=== PATIENT | female | born 1995 | race Caucasian/White ===

== ENCOUNTER 2016-11-29 12:47 | Emergency (ER) | payer OTHER ==
[2016-11-29 12:57] VITALS: RESP 16
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
[2016-11-29 14:50] VITALS: BP 123/75; PULSE 73; TEMP 97.6
== END 2016-11-29 14:51 | disposition home or self-care (01) ==
LOC: EC 12:47
DX: S09.90XA Unspecified injury of head, initial encounter (principal); J45.909 Unspecified asthma, uncomplicated; F17.200 Nicotine dependence, unspecified, uncomplicated; Z88.1 Allergy status to other antibiotic agents; Z91.040 Latex allergy status; Z88.0 Allergy status to penicillin; Z88.2 Allergy status to sulfonamides; Z91.018 Allergy to other foods; W22.8XXA Striking against or struck by other objects, initial encounter
CPT/HCPCS: 70450; 99283

== ENCOUNTER → 2016-12-02 | Outpatient (CLI) | payer OTHER ==
--- NOTE | 2016-12-02 23:12 | MR ---
EXAMINATION TYPE: MR knee LT wo con DATE OF EXAM: 12/02/2016 6:23 PM COMPARISON: 06/15/2016 HISTORY: 21-year-old female with left knee pain since 10/2016, slipped and fell on ice TECHNIQUE: Multiplanar, multisequence imaging of the left knee is performed without IV contrast. FINDINGS: ACL, PCL, MCL, and LCL complex appear intact. There is some degenerative signal in the posterior horn of the medial meniscus without clear signal e xtension to either articular surface. Overall medial compartment articular cartilage volume is mainta ined. Lateral meniscus is intact and overall lateral compartment articular cartilage volume is maintained. 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 The TT-T G distance is intermediate at 1.5 cm and there is no rudi patella kelvin. There is interval fixation at both attachment sites of the MPFL with a thick ligamentous band seen co nnecting between screws located at each attachment site. However, the hypointense band is slightly re dundant, axial image 18 and while the femoral attachment site, axial image 17 and visualized, the med ial patellar attachment site is not well delineated, axial image 16. Extensor mechanism appears intact. There is small amount of edema within Hoffa's fat located inferior and lateral to the patella, sagittal PD FS image 9 and axial image 11. Overall patellofemoral compartment articular cartilage is maintained. Extensor mechanism is intact. Small knee joint effusion without King's cyst. No suspicious bone marrow replacement. Normal popliteal artery anatomy with mild generalized muscular atrophy. IMPRESSION: 1. 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 Note that the reconstructed ligament appears wavy and the patellar attachment is not well delineated. Correlate to exclude failure of the reconstruction. 2. Some signal changes within Hoffa's fat inferior and lateral to the patella can be seen in the sett ing of fat pad impingement syndrome. Clinically correlate. 3. Overall tricompartmental cartilage is maintained. 4. Degenerative signal in the posterior horn of the medial meniscus without discrete meniscal tear.
== END | disposition home or self-care (01) ==
LOC: RADMRIMAIN 17:54
PROVIDERS: ATTEND Orthopaedic Surgery Sports Medicine
DX: M17.12 Unilateral primary osteoarthritis, left knee (principal); Q74.1 Congenital malformation of knee

== ENCOUNTER 2017-02-18 17:22 | Emergency (ER) | payer OTHER ==
[2017-02-18 17:39] VITALS: BP 142/81; PULSE 102; RESP 16; TEMP 98
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
--- NOTE | 2017-02-18 17:54 | XR ---
EXAMINATION TYPE: XR hand complete RT DATE OF EXAM: 02/18/2017 5:47 PM COMPARISON: NONE HISTORY: Fell on the hand. Pain. TECHNIQUE: 3 views FINDINGS: I see no fracture nor dislocation. Metacarpals appear intact. Joint spaces appear normal. IMPRESSION: Negative right hand exam.
== END 2017-02-18 18:11 | disposition home or self-care (01) ==
LOC: EC 17:22
DX: S60.221A Contusion of right hand, initial encounter (principal); J45.909 Unspecified asthma, uncomplicated; W17.89XA Other fall from one level to another, initial encounter; Y92.008 Other place in unspecified non-institutional (private) residence as the place of occurrence of the external cause; F17.200 Nicotine dependence, unspecified, uncomplicated; Z88.0 Allergy status to penicillin; Z91.040 Latex allergy status; Z91.018 Allergy to other foods; Z88.2 Allergy status to sulfonamides
CPT/HCPCS: 99283

== ENCOUNTER → 2017-08-31 | Outpatient (CLI) | payer OTHER ==
--- NOTE | 2017-08-31 13:03 | XR ---
EXAMINATION TYPE: XR abdomen 1V DATE OF EXAM: 08/31/2017 COMPARISON: NONE INDICATION: Abdomen pain right lower quadrant pain TECHNIQUE: Single view abdomen frontal projection FINDINGS: There is a normal bowel gas pattern. Psoas margins are normal. No organomegaly is present. IMPRESSION: 1. Unremarkable Abdomen
== END | disposition home or self-care (01) ==
LOC: RADXRYALE 11:59
PROVIDERS: ATTEND Physician Assistant
DX: R10.9 Unspecified abdominal pain (principal)
CPT/HCPCS: 74000

== ENCOUNTER 2017-09-01 19:35 | Emergency (ER) | payer OTHER ==
[2017-09-01] MEDS ORDERED: ONDANSETRON 4 MG/2 ML VIAL IVP STA (20:06)
[2017-09-01] MEDS ORDERED: RX INFO: IV CONTRAST WAS GIVEN 1 EACH MISC MISCELLANE PRN (20:06)
[2017-09-01] MEDS ORDERED: SODIUM CHLORIDE 0.9% 1,000 ML IV STA ×2 (20:06)
[2017-09-01] MEDS ORDERED: KETOROLAC 30 MG/ML 1 ML VIAL IVP STA (20:06)
--- NOTE | 2017-09-01 20:13 | ED ---
Abdominal Pain HPI - General Chief Complaint: Abdominal Pain Stated Complaint: Abd Pain Time Seen by Provider: 09/01/17 19:54 Source: patient, RN notes reviewed, old records reviewed Mode of arrival: ambulatory Limitations: no limitations - History of Present Illness Initial Comments: 22-year-old female presents emergency Department chief complaint of 2 days of right-sided flank, and upper quadrant pain. Patient reports a sharp primary care provider yesterday, and they told her if the pain starts to get lower that she needs to come to the emergency department. She reports that over the past day the pain has became progressively worse and is now radiating towards her right lower quadrant pelvic area. Patient states that she is currently on the dip a shot, she has no chance of . Denies any dysuria or hematuria. She denies any episodes of vomiting but she does feel very nauseated. Denies any changes in bowel movements. She reports that she feels very chilled, denies any specific fever. - Related Data Home Medications Medication Instructions Recorded Confirmed Citalopram Hydrobromide [CeleXA] 10 mg PO HS 09/01/17 09/01/17 Montelukast [Singulair] 10 mg PO HS 09/01/17 09/01/17 Nitrofurantoin Monohyd/M-Cryst 100 mg PO Q12HR 09/01/17 09/01/17 [Macrobid] Zolpidem [Ambien] 5 mg PO HS 09/01/17 09/01/17 Previous Rx's Medication Instructions Recorded Ciprofloxacin HCl [Cipro] 500 mg PO Q12HR #14 tablet 09/01/17 Allergies Allergy/AdvReac Type Severity Reaction Status Date / Time amoxicillin [Amoxicillin] Allergy Rash/Hives Verified 09/01/17 19:50 coconut Allergy Unknown Verified 09/01/17 19:50 latex Allergy Rash/Hives Verified 09/01/17 19:50 pineapple Allergy Unknown Verified 09/01/17 19:42 sulfamethoxazole Allergy Dyspnea Verified 09/01/17 19:50 [From Bactrim] trimethoprim [From Bactrim] Allergy Dyspnea Verified 09/01/17 19:50 tropical fruit Allergy Swelling Uncoded 09/01/17 19:42 Review of Systems ROS Statement: Those systems with pertinent positive or pertinent negative responses have been documented in the HPI. ROS Other: All systems not noted in ROS Statement are negative. Past Medical History Past Medical History: Asthma History of Any Multi-Drug Resistant Organisms: None Reported Past Surgical History: Orthopedic Surgery Additional Past Surgical History / Comment(s): left knee surgery, oral surgery Past Psychological History: Anxiety Smoking Status: Current every day smoker Past Alcohol Use History: Occasional Past Drug Use History: None Reported General Exam - General Exam Comments Initial Comments: 22-year-old female. No distress. Limitations: no limitations General appearance: alert, in no apparent distress Head exam: Present: atraumatic, normocephalic, normal inspection Eye exam: Present: normal appearance, PERRL, EOMI. Absent: scleral icterus, conjunctival injection, periorbital swelling ENT exam: Present: normal exam, mucous membranes moist Neck exam: Present: normal inspection. Absent: tenderness, meningismus, lymphadenopathy Respiratory exam: Present: normal lung sounds bilaterally. Absent: respiratory distress, wheezes, rales, rhonchi, stridor Cardiovascular Exam: Present: regular rate GI/Abdominal exam: Present: soft, tenderness (Right lower quadrant right upper quadrant tenderness.), normal bowel sounds. Absent: distended, guarding, rebound, rigid Extremities exam: Present: normal inspection, full ROM, normal capillary refill. Absent: tenderness, pedal edema, joint swelling, calf tenderness Back exam: Present: normal inspection, CVA tenderness (R) Neurological exam: Present: alert, oriented X3, CN II-XII intact Psychiatric exam: Present: normal affect, normal mood Skin exam: Present: warm, dry, intact, normal color. Absent: rash Course Vital Signs 09/01/17 19:38 Temperature 99.1 F Pulse Rate 99 Respiratory 16 Rate Blood Pressure 116/85 O2 Sat by Pulse 96 Oximetry Medical Decision Making - Medical Decision Making 22-year-old field sincedepartment with right upper quadrant pain that radiated towards her right lower quadrant, and some right flank pain for approximately 2 days. Patient was seen by her primary care provider and was told that she had a slight urinary tract infection. She reports the pain got progressively worse patient's blood work was reviewed, was within normal limits. Normal kidney function and liver function. Patient was significant only tender over the right lower quadrant, computed tomography scan abdomen and pelvis was completed , this time is negative for appendicitis, there are follicular changes in the ovaries. Patient's urine does show some signs of infection with white blood cells leukocyte esterase. Patient will be changed from Macrobid to Cipro. Patient will be given a first dose of Cipro in the emergency department. Discussed following up with her primary care provider. Discussed also that she needs to follow-up in regards to other gallbladder etiology is given a HIDA scan. Patient understood history plan will comply. Return parameters were discussed. - Lab Data Result diagrams: 09/01/17 20:15 09/01/17 20:15 Lab Results 09/01/17 09/01/17 09/01/17 Range/Units 20:15 20:15 20:15 WBC 9.2 (3.8-10.6) k/uL RBC 5.31 (3.80-5.40) m/uL Hgb 15.8 (11.4-16.0) gm/dL Hct 47.3 H (34.0-46.0) % MCV 89.1 (80.0-100.0) fL MCH 29.8 (25.0-35.0) pg MCHC 33.5 (31.0-37.0) g/dL RDW 14.0 (11.5-15.5) % Plt Count 334 (150-450) k/uL Neutrophils % 61 % Lymphocytes % 27 % Monocytes % 4 % Eosinophils % 6 % Basophils % 1 % Neutrophils # 5.7 (1.3-7.7) k/uL Lymphocytes # 2.5 (1.0-4.8) k/uL Monocytes # 0.4 (0-1.0) k/uL Eosinophils # 0.6 (0-0.7) k/uL Basophils # 0.1 (0-0.2) k/uL Sodium 141 (137-145) mmol/L Potassium 4.2 (3.5-5.1) mmol/L Chloride 107 (98-107) mmol/L Carbon Dioxide 20 L (22-30) mmol/L Anion Gap 14 mmol/L BUN 12 (7-17) mg/dL Creatinine 0.69 (0.52-1.04) mg/dL Est GFR (MDRD) Af Amer >60 (>60 ml/min/1.73 sqM) Est GFR (MDRD) Non-Af >60 (>60 ml/min/1.73 sqM) Glucose 78 (74-99) mg/dL Calcium 9.7 (8.4-10.2) mg/dL Total Bilirubin 0.5 (0.2-1.3) mg/dL AST 33 (14-36) U/L ALT 59 H (9-52) U/L Alkaline Phosphatase 95 (38-126) U/L Total Protein 7.5 (6.3-8.2) g/dL Albumin 4.5 (3.5-5.0) g/dL Amylase 31 (30-110) U/L Lipase 73 (23-300) U/L Urine Color Urine Appearance (Clear) Urine pH (5.0-8.0) Ur Specific [place] (1.001-1.035) Urine Protein (Negative) Urine Glucose (UA) (Negative) Urine Ketones (Negative) Urine Blood (Negative) Urine Nitrite (Negative) Urine Bilirubin (Negative) Urine Urobilinogen (<2.0) mg/dL Ur Leukocyte Esterase (Negative) Urine RBC (0-5) /hpf Urine WBC (0-5) /hpf Ur Squamous Epith Cells (0-4) /hpf Urine Bacteria (None) /hpf Urine Mucus (None) /hpf Urine HCG, Qual Not Detected (Not Detectd) 09/01/17 Range/Units 20:15 WBC (3.8-10.6) k/uL RBC (3.80-5.40) m/uL Hgb (11.4-16.0) gm/dL Hct (34.0-46.0) % MCV (80.0-100.0) fL MCH (25.0-35.0) pg MCHC (31.0-37.0) g/dL RDW (11.5-15.5) % Plt Count (150-450) k/uL Neutrophils % % Lymphocytes % % Monocytes % % Eosinophils % % Basophils % % Neutrophils # (1.3-7.7) k/uL Lymphocytes # (1.0-4.8) k/uL Monocytes # (0-1.0) k/uL Eosinophils # (0-0.7) k/uL Basophils # (0-0.2) k/uL Sodium (137-145) mmol/L Potassium (3.5-5.1) mmol/L Chloride (98-107) mmol/L Carbon Dioxide (22-30) mmol/L Anion Gap mmol/L BUN (7-17) mg/dL Creatinine (0.52-1.04) mg/dL Est GFR (MDRD) Af Amer (>60 ml/min/1.73 sqM) Est GFR (MDRD) Non-Af (>60 ml/min/1.73 sqM) Glucose (74-99) mg/dL Calcium (8.4-10.2) mg/dL Total Bilirubin (0.2-1.3) mg/dL AST (14-36) U/L ALT (9-52) U/L Alkaline Phosphatase (38-126) U/L Total Protein (6.3-8.2) g/dL Albumin (3.5-5.0) g/dL Amylase (30-110) U/L Lipase (23-300) U/L Urine Color Yellow Urine Appearance Cloudy H (Clear) Urine pH 5.5 (5.0-8.0) Ur Specific [place] 1.023 (1.001-1.035) Urine Protein Trace H (Negative) Urine Glucose (UA) Negative (Negative) Urine Ketones Negative (Negative) Urine Blood Negative (Negative) Urine Nitrite Negative (Negative) Urine Bilirubin Negative (Negative) Urine Urobilinogen 2.0 (<2.0) mg/dL Ur Leukocyte Esterase Large H (Negative) Urine RBC 8 H (0-5) /hpf Urine WBC 23 H (0-5) /hpf Ur Squamous Epith Cells 26 H (0-4) /hpf Urine Bacteria Rare H (None) /hpf Urine Mucus Occasional H (None) /hpf Urine HCG, Qual (Not Detectd) - Radiology Data Radiology results: report reviewed CT abdomen and pelvis is performed,status. Patient does have liquid changes and bilateral ovaries. Disposition Clinical Impression: UTI (urinary tract infection) Disposition: HOME SELF-CARE Condition: Good Instructions: Urinary Tract Infection in Women (ED) Additional Instructions: Patient denies to follow-up with her primary care provider. Rest, increase fluids. Take Motrin or Tylenol for pain. Return to emergency department if any alarming signs or symptoms occur. Prescriptions: Ciprofloxacin HCl [Cipro] 500 mg PO Q12HR #14 tablet Referrals: Benson Chen DO [Primary Care Provider] - 1-2 days Time of Disposition: 21:46
[2017-09-01 20:27] LABS: Basophils # (A) 0.1 k/uL (0-0.2); Basophils % (A) 1 %; CH 31.2; CHCM 35.2; Eosinophils # (A) 0.6 k/uL (0-0.7); Eosinophils % (A) 6 %; HCT 47.3 % (34.0-46.0); HDW 2.31; HGB 15.8 gm/dL (11.4-16.0); Luc # (Auto) 0.15; Luc % (Auto) 2; Lymphocytes # (A) 2.5 k/uL (1.0-4.8); Lymphocytes % (A) 27 %; MCH 29.8 pg (25.0-35.0); MCHC 33.5 g/dL (31.0-37.0); MCV 89.1 fL (80.0-100.0); Monocytes # (A) 0.4 k/uL (0-1.0); Monocytes % (A) 4 %; Neutrophils # (A) 5.7 k/uL (1.3-7.7); Neutrophils % (A) 61 %; RBC 5.31 m/uL (3.80-5.40); WBC 9.2 k/uL (3.8-10.6); WBC (Perox) 9.53
[2017-09-01 20:29] LABS: Appearance,Urine Cloudy (Clear); Bacteria,Urine Rare /hpf; Bilirubin,Urine Negative (Negative); Glucose,Urine (UA) Negative (Negative); Ketones,Urine Negative (Negative); Leukocyte Esterase,Urine Large (Negative); Mucus,Urine Occasional /hpf; Nitrite,Urine Negative (Negative); PH, Urine 5.5 (5.0-8.0); Particle Count 9861; Protein,Urine Trace (Negative); RBC,Urine 8 /hpf (0-5); Specific Gravity,Urine 1.023 (1.001-1.035); Squamous Epithelial Cell,Urine 26 /hpf (0-4); UA Billing (MACRO vs. MICRO) MICRO; WBC,Urine 23 /hpf (0-5)
[2017-09-01 20:36] LABS: ALT 59 U/L (9-52); AST 33 U/L (14-36); Alkaline Phosphatase 95 U/L (38-126); Amylase 31 U/L (30-110); Anion Gap 14 mmol/L; Blood Urea Nitrogen 12 mg/dL (7-17); Calcium 9.7 mg/dL (8.4-10.2); Carbon Dioxide 20 mmol/L (22-30); Chloride 107 mmol/L (98-107); Glucose 78 mg/dL (74-99); Non-African American GFR(MDRD) >60 (>60 ml/min/1.73 sqM); Potassium 4.2 mmol/L (3.5-5.1); Sodium 141 mmol/L (137-145); Total Bilirubin 0.5 mg/dL (0.2-1.3); Total Protein 7.5 g/dL (6.3-8.2)
--- NOTE | 2017-09-01 21:26 | CT ---
EXAMINATION TYPE: CT abdomen pelvis w con DATE OF EXAM: 09/01/2017 HISTORY: Right lower quadrant pain with nausea x [address] DLP: 632.10mGycm Automated Exposure Control for Dose Reduction was Utilized. CONTRAST: CT scan of the abdomen and pelvis is performed with IV Contrast, patient injected with 100 mL of Omni paque 300. COMPARISON: 11/16/2015 FINDINGS: LUNG BASES: Minimal subsegmental bibasilar dependent atelectasis is appreciated. LIVER/GB: Liver parenchyma enhances homogeneously. No intrahepatic biliary ductal dilatation. Gallbla dder is unremarkable with no radiopaque calculi.. PANCREAS: No significant abnormality is seen. No ductal dilatation. SPLEEN: No significant abnormality is seen. ADRENALS: No significant abnormality is seen. KIDNEYS: No significant abnormality is seen. BOWEL: Appendix is located within the low pelvis on axial images 60 through 64 and coronal images 44 through 67. Air is seen proximally. Appendix is within normal limits of size measuring 5.5 mm. No per iappendiceal fat stranding is seen. Appendix is located within the right low pelvis. UTERUS/ADNEXA: Follicular changes are seen of the ovaries. LYMPH NODES: No greater than 1cm abdominal or pelvic lymph nodes are appreciated. OSSEOUS STRUCTURES: No significant abnormality is seen. OTHER: No significant additional abnormality is seen. IMPRESSION: 1. Appendix is within normal limits of size without periappendiceal fat stranding. No current CT evid ence of appendicitis. 2. Follicular changes of the ovaries. 3. No CT finding to correspond to the patient's right lower quadrant pain.
[2017-09-01] MEDS ORDERED: CIPROFLOXACIN HCL 500 MG TAB PO STA (21:43)
[2017-09-01 21:57] VITALS: BP 119/63; PULSE 87; RESP 18; TEMP 98.2
== END 2017-09-01 21:56 | disposition home or self-care (01) ==
LOC: EC 19:35 → SUPCPDRO 19:35 → EC 21:56
DX: N39.0 Urinary tract infection, site not specified (principal); R10.11 Right upper quadrant pain; J45.909 Unspecified asthma, uncomplicated; F17.200 Nicotine dependence, unspecified, uncomplicated; Z79.899 Other long term (current) drug therapy; Z88.0 Allergy status to penicillin; Z88.1 Allergy status to other antibiotic agents; Z91.018 Allergy to other foods; Z91.040 Latex allergy status
CPT/HCPCS: 99285 ×2; 96374 ×2; 96375 ×2; 96361 ×2; 36415; 80053; 82150; 83690; 85025; 81001; 81025; 87086; 74177; J2405; J1885; Q9967

== ENCOUNTER → 2018-02-27 | Outpatient (CLI) | payer BC, OTHER ==
[2018-02-27 10:39] VITALS: BMI 31.4
== END | disposition home or self-care (01) ==
LOC: MNTWWP 09:21
PROVIDERS: ATTEND Family Medicine
DX: E66.09 Other obesity due to excess calories (principal); Z68.31 Body mass index [BMI] 31.0-31.9, adult
CPT/HCPCS: 97802

== ENCOUNTER 2018-05-14 18:20 | Emergency (ER) | payer BC ==
[2018-05-14 18:34] VITALS: BP 120/80; PULSE 80; RESP 18; TEMP 99.1
[2018-05-14] MEDS ORDERED: IBUPROFEN 600 MG TAB PO STA (18:52)
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
--- NOTE | 2018-05-14 19:23 | XR ---
EXAMINATION TYPE: XR tibia fibula LT DATE OF EXAM: 05/14/2018 CLINICAL HISTORY: TECHNIQUE: Two views of the left tib-fib are obtained. COMPARISON: None. FINDINGS: There is an acute undisplaced oblique fracture through the distal left fibula approximatel y 3.8 cm from the lateral malleolus.. Soft tissue swelling laterally. IMPRESSION: Acute undisplaced oblique fracture through the distal fibula and located 3.8 cm from the tip of the l ateral malleolus. Soft tissue swelling.
--- NOTE | 2018-05-14 19:24 | XR ---
EXAMINATION TYPE: XR ankle complete LT DATE OF EXAM: 05/14/2018 CLINICAL HISTORY: Pain post injury TECHNIQUE: Frontal, lateral and oblique images of the left ankle are obtained. COMPARISON: None. FINDINGS: Soft tissue swelling laterally with undisplaced oblique fracture through the distal fibula and located 3.8 cm from the tip of the lateral malleolus. Ankle mortise is still well preserved.. IMPRESSION: Undisplaced comminuted oblique fracture through the distal fibula located 3.8 cm from the nipple the lateral malleolus. Soft tissue swelling. Preservation of the ankle mortise.
== END 2018-05-14 20:07 | disposition home or self-care (01) ==
LOC: EC 18:20
DX: S82.65XA Nondisplaced fracture of lateral malleolus of left fibula, initial encounter for closed fracture (principal); J45.909 Unspecified asthma, uncomplicated; F41.9 Anxiety disorder, unspecified; F17.200 Nicotine dependence, unspecified, uncomplicated; Z79.899 Other long term (current) drug therapy; Z88.0 Allergy status to penicillin; Z88.1 Allergy status to other antibiotic agents; Z91.018 Allergy to other foods; Z91.040 Latex allergy status; V92.09XA Drowning and submersion due to fall off unspecified watercraft, initial encounter; Y93.39 Activity, other involving climbing, rappelling and jumping off
CPT/HCPCS: 29515; 99283

== ENCOUNTER → 2018-05-22 | Outpatient (CLI) | payer BC ==
--- NOTE | 2018-05-22 16:46 | CT ---
EXAMINATION TYPE: CT ankle LT wo con DATE OF EXAM: 05/22/2018 COMPARISON: Radiograph 05/14/2018 HISTORY: 22-year-old female Left ankle fx TECHNIQUE: Contiguous axial scanning of the left ankle without IV contrast. Coronal and sagittal amanda nstructions performed. 3-D reconstructions generated on a dedicated independent workstation. CT DLP: 269 mGycm Automated exposure control for dose reduction was used. FINDINGS: There is an oblique fracture of the distal fibula without significant displacement. However, there is comminution along the anterior margin of the distal fibula with a mildly 16 x 7 mm bone fr agment. This is suspected to correspond to the attachment site of the anterior inferior tibiofibular ligament and is located above the expected attachment of the ATFL. Prominent lateral sided soft tissue swelling. Talar dome is intact. No additional acute fracture is seen. Subtalar joint alignment. Small delineati on to the Achilles tendon. Likely intraosseous lipoma or prominent vascular remnants within the calca andrew body. IMPRESSION: 1. OBLIQUE FRACTURE DISTAL FIBULA WITHOUT SIGNIFICANT DISPLACEMENT. 2. HOWEVER, THERE IS COMMINUTION ALONG THE ANTERIOR MARGIN OF THIS FRACTURE WITH A MILDLY 1 6 X 7 MM FRAGMENT THAT LIKELY INVOLVES THE ATTACHMENT SITE OF THE AITFL. 3. PROMINENT LATERAL SIDED SOFT TISSUE SWELLING. NO ADDITIONAL ACUTE FRACTURE SEEN.
== END | disposition home or self-care (01) ==
LOC: RADCTMAIN 14:28
PROVIDERS: ATTEND Orthopaedic Surgery
DX: S82.832A Other fracture of upper and lower end of left fibula, initial encounter for closed fracture (principal)

== ENCOUNTER → 2019-12-07 | Outpatient (CLI) | payer OTHER ==
--- NOTE | 2019-12-07 13:00 | US ---
EXAMINATION TYPE: US pelvic complete DATE OF EXAM: 12/07/2019 COMPARISON: CT September 01, 2017 CLINICAL HISTORY: N94.6 Dysmenorrhea, unspecified. Pt states pelvic pain TECHNIQUE: Transabdominal (TA). Transabdominal sonographic images of the pelvis were acquired. Date of LMP: 1 month ago, pt states on 3 month cycle control EXAM MEASUREMENTS: Uterus: 7.2 x 2.2 x 3.2 cm Endometrial Stripe: 0.2 cm Right Ovary: 3.4 x 2.6 x 1.8 cm Left Ovary: 2.8 x 2.3 x 1.8 cm 1. Uterus: Anteverted Appeared wnl 2. Endometrium: wnl 3. Right Ovary: wnl 4. Left Ovary: wnl 5. Bilateral Adnexa: wnl 6. Posterior cul-de-sac: wnl IMPRESSION: Unremarkable transabdominal pelvic ultrasound study.
== END | disposition home or self-care (01) ==
LOC: RADUSWWP 12:24
PROVIDERS: ATTEND Family Medicine
DX: N94.6 Dysmenorrhea, unspecified (principal)
CPT/HCPCS: 76856

== ENCOUNTER 2020-05-05 16:48 | Emergency (ER) | payer OTHER ==
[2020-05-05 16:58] VITALS: TEMP 98
[2020-05-05] MEDS ORDERED: SODIUM CHLORIDE 0.9% 1,000 ML IV STA (17:07)
[2020-05-05] MEDS ORDERED: diphenhydrAMINE 50 MG/ML 1 ML VIAL IVP STA (17:07)
[2020-05-05] MEDS ORDERED: ONDANSETRON 4 MG/2 ML VIAL IVP STA (17:07)
[2020-05-05] MEDS ORDERED: KETOROLAC 30 MG/ML 1 ML VIAL IVP STA (17:07)
--- NOTE | 2020-05-05 17:10 | ED ---
General Adult HPI - General Chief complaint: Neuro Symptoms/Deficit Stated complaint: L side numbness & lost vision in L eye Time Seen by Provider: 05/05/20 17:00 Source: patient Mode of arrival: ambulatory Limitations: no limitations - History of Present Illness Initial comments: Dictation was produced using [employer] dictation software. please excuse any grammatical, word or spelling errors. This patient was cared for during a federal and state declared state of emergency secondary to Covid 19 Chief Complaint: 24-year-old female presents with 2 hours of left vision changes, headache and left-sided paresthesias History of Present Illness: 24-year-old female she has no known comorbidities. She presents today with 2 hour of vision changes. Patient states her symptoms started 2 hours ago. Initially started with static E appearance of vision from the left eye. She reports that when she saw and episode of field of vision in h er left eye. Patient states that shortly after she developed a crampy posterior headache. Patient denies any history of migraines however she does get headaches every 3 months. Patient also noted that there was some tingling to her left arm and left leg. Patient states that her symptoms are significantly improved however she does feel that she sees some thoughts out of her left eye. No nausea vomiting Patient states she could be . The ROS documented in this emergency department record has been reviewed and confirmed by me. Those systems with pertinent positive or negative responses have been documented in the HPI. All other systems are other negative and/or noncontributory. PHYSICAL EXAM: General Impression: Alert and oriented x3, not in acute distress HEENT: Normocephalic atraumatic, extra-ocular movements intact, pupils equal and reactive to light bilaterally, mucous membranes moist. Cardiovascular: Heart regular rate and rhythm Chest: Able to complete full sentences, no retractions, no tachypnea Abdomen: abdomen soft, non-tender, non-distended, no organomegaly Musculoskeletal: Pulses present and equal in all extremities, no peripheral edema Motor: no focal deficits noted Neurological: CN II-XII grossly intact, no focal motor or sensory deficits noted Skin: Intact with no visualized rashes Psych: Normal affect and mood ED course: 24 Year-old well-appearing female presents with neurologic changes that started 2 hours ago. She states that most of her symptoms have since resolved however she does still have some mild vision changes that are still slightly persistent. She has no focal neurologic deficits appreciated on physical exam. Vital signs upon arrival are within acceptable limits. Laboratory evaluation obtained. Labs are unremarkable. Beta hCG is negative. Computed tomography scan of brain is unremarkable. Patient reevaluated after he adache cocktail. She reports complete resolution of her symptoms. At this point patient's clinical presentation is likely complex migraine. Patient be discharged. She is advised to follow-up with her primary care physician. Return premises discussed. Patient discharged. - Related Data Home Medications Medication Instructions Recorded Confirmed Citalopram Hydrobromide [CeleXA] 10 mg PO HS 09/01/17 09/01/17 Montelukast [Singulair] 10 mg PO HS 09/01/17 09/01/17 Nitrofurantoin Monohyd/M-Cryst 100 mg PO Q12HR 09/01/17 09/01/17 [Macrobid] Zolpidem [Ambien] 5 mg PO HS 09/01/17 09/01/17 Previous Rx's Medication Instructions Recorded Ciprofloxacin HCl [Cipro] 500 mg PO Q12HR #14 tablet 09/01/17 Allergies Allergy/AdvReac Type Severity Reaction Status Date / Time amoxicillin [Amoxicillin] Allergy Rash/Hives Verified 05/05/20 16:54 banana Allergy Unknown Verified 05/05/20 16:54 coconut Allergy Unknown Verified 05/05/20 16:54 cucumber Allergy Unknown Verified 05/05/20 16:54 latex Allergy Rash/Hives Verified 05/05/20 16:54 farhad Allergy Unknown Verified 05/05/20 16:54 pineapple Allergy Unknown Verified 05/05/20 16:54 sulfamethoxazole Allergy Dyspnea Verified 05/05/20 16:54 [From Bactrim] trimethoprim [From Bactrim] Allergy Dyspnea Verified 05/05/20 16:54 tropical fruit Allergy Swelling Uncoded 05/14/18 18:34 Review of Systems ROS Statement: Those systems with pertinent positive or pertinent negative responses have been documented in the HPI. ROS Other: All systems not noted in ROS Statement are negative. Past Medical History Past Medical History: Asthma History of Any Multi-Drug Resistant Organisms: None Reported Past Surgical History: Orthopedic Surgery Additional Past Surgical History / Comment(s): left knee surgery, oral surgery Past Psychological History: Anxiety Smoking Status: Current every day smoker Past Alcohol Use History: Occasional Past Drug Use History: None Reported General Exam Limitations: no limitations Course Vital Signs 05/05/20 05/05/20 16:55 18:20 Temperature 98 F Pulse Rate 98 79 Respiratory 18 15 Rate Blood Pressure 127/87 122/84 O2 Sat by Pulse 96 97 Oximetry Medical Decision Making - Lab Data Result diagrams: 05/05/20 17:29 05/05/20 17:29 Lab Results 05/05/20 05/05/20 05/05/20 Range/Units 17:07 17:29 17:29 WBC 12.1 H (3.8-10.6) k/uL RBC 5.36 (3.80-5.40) m/uL Hgb 14.7 (11.4-16.0) gm/dL Hct 45.2 (34.0-46.0) % MCV 84.3 (80.0-100.0) fL MCH 27.5 (25.0-35.0) pg MCHC 32.6 (31.0-37.0) g/dL RDW 13.0 (11.5-15.5) % Plt Count 383 (150-450) k/uL Neutrophils % 76 % Lymphocytes % 15 % Monocytes % 3 % Eosinophils % 4 % Basophils % 0 % Neutrophils # 9.3 H (1.3-7.7) k/uL Lymphocytes # 1.8 (1.0-4.8) k/uL Monocytes # 0.4 (0-1.0) k/uL Eosinophils # 0.5 (0-0.7) k/uL Basophils # 0.1 (0-0.2) k/uL Sodium 138 (137-145) mmol/L Potassium 4.5 (3.5-5.1) mmol/L Chloride 109 H (98-107) mmol/L Carbon Dioxide 20 L (22-30) mmol/L Anion Gap 9 mmol/L BUN 12 (7-17) mg/dL Creatinine 0.69 (0.52-1.04) mg/dL Est GFR (CKD-EPI)AfAm >90 (>60 ml/min/1.73 sqM) Est GFR (CKD-EPI)NonAf >90 (>60 ml/min/1.73 sqM) Glucose 89 (74-99) mg/dL Calcium 9.8 (8.4-10.2) mg/dL Urine HCG, Qual Not Detected (Not Detectd) Disposition Clinical Impression: Migraine Disposition: HOME SELF-CARE Condition: Good Instructions (If sedation given, give patient instructions): Acute Headache (ED) Is patient prescribed a controlled substance at d/c from ED?: No Referrals: Benson Chen DO [Primary Care Provider] - 1-2 days Time of Disposition: 19:22
[2020-05-05 17:38] LABS: Basophils # (A) 0.1 k/uL (0-0.2); Basophils % (A) 0 %; Eosinophils # (A) 0.5 k/uL (0-0.7); Eosinophils % (A) 4 %; HCT 45.2 % (34.0-46.0); HGB 14.7 gm/dL (11.4-16.0); Lymphocytes # (A) 1.8 k/uL (1.0-4.8); Lymphocytes % (A) 15 %; MCH 27.5 pg (25.0-35.0); MCHC 32.6 g/dL (31.0-37.0); MCV 84.3 fL (80.0-100.0); Mean Platelet Volume 7.1; Monocytes # (A) 0.4 k/uL (0-1.0); Monocytes % (A) 3 %; Neutrophils # (A) 9.3 k/uL (1.3-7.7); Neutrophils % (A) 76 %; Platelet Count 383 k/uL (150-450); RBC 5.36 m/uL (3.80-5.40); WBC 12.1 k/uL (3.8-10.6)
[2020-05-05 17:48] LABS: African American GFR (CKD) >90 (>60 ml/min/1.73 sqM); Anion Gap 9 mmol/L; Blood Urea Nitrogen 12 mg/dL (7-17); Calcium 9.8 mg/dL (8.4-10.2); Carbon Dioxide 20 mmol/L (22-30); Chloride 109 mmol/L (98-107); Glucose 89 mg/dL (74-99); Non-African American GFR(CKD) >90 (>60 ml/min/1.73 sqM); Potassium 4.5 mmol/L (3.5-5.1); Sodium 138 mmol/L (137-145)
--- NOTE | 2020-05-05 19:12 | CT ---
EXAMINATION TYPE: CT brain wo con DATE OF EXAM: 05/05/2020 COMPARISON: 11/29/2016 HISTORY: LEFT EYE VISION LOSS AND PACE CT DLP: 1091.4 mGycm Automated exposure control for dose reduction was used. Ventricles and sulci appear normal. There is no mass effect nor midline shift. There is no sign of in tracranial hemorrhage. Calvarium is intact. There is no evidence of cerebral edema. Skull base is int act. IMPRESSION: Negative unenhanced head CT scan. No change.
[2020-05-05 19:32] VITALS: BP 111/81; PULSE 71; RESP 18
== END 2020-05-05 19:32 | disposition home or self-care (01) ==
LOC: EC 16:48
DX: G43.909 Migraine, unspecified, not intractable, without status migrainosus (principal); J45.909 Unspecified asthma, uncomplicated; F41.9 Anxiety disorder, unspecified; F17.200 Nicotine dependence, unspecified, uncomplicated; Z79.899 Other long term (current) drug therapy; Z79.51 Long term (current) use of inhaled steroids; Z88.0 Allergy status to penicillin; Z88.1 Allergy status to other antibiotic agents; Z88.2 Allergy status to sulfonamides; Z91.040 Latex allergy status; Z91.018 Allergy to other foods
CPT/HCPCS: 36415; 80048; 85025; 81025; 70450; 99284; 96374; 96375 ×2; 96361; J1200; J2405; J1885

== ENCOUNTER → 2020-07-17 | Outpatient (CLI) | payer OTHER | END | disposition home or self-care (01) | LOC: LABWHC1 09:29 | PROVIDERS: ATTEND Obstetrics & Gynecology | DX: N91.2 Amenorrhea, unspecified (principal) | CPT/HCPCS: 36415; 84702 ==

== ENCOUNTER → 2020-11-04 | Outpatient (CLI) | payer OTHER ==
--- NOTE | 2020-11-04 09:49 | XR ---
EXAMINATION TYPE: XR Hip Complete RT DATE OF EXAM: 11/04/2020 CLINICAL HISTORY: pain TECHNIQUE: AP and frogleg views of the right hip are obtained. COMPARISON: None. FINDINGS: There is no acute fracture/dislocation evident. The joint space appears within normal li mits. The overlying soft tissue appears unremarkable. IMPRESSION: 1. There is no acute fracture or dislocation. ICD 10 NO FRACTURE, INITIAL EVALUATION
== END | disposition home or self-care (01) ==
LOC: RADXRYALE 09:13
PROVIDERS: ATTEND Physician Assistant Medical
DX: M25.551 Pain in right hip (principal)
CPT/HCPCS: 73502

== ENCOUNTER → 2021-03-24 | Outpatient (CLI) | payer OTHER ==
--- NOTE | 2021-03-24 13:43 | MR ---
EXAMINATION TYPE: MR knee LT wo con DATE OF EXAM: 03/24/2021 COMPARISON: Film 03/03/2021, prior knee MRI 12/02/2016 HISTORY: Left knee pain covering whole knee, swelling, and locking since december 2020. TECHNIQUE: Multiplanar, multisequence imaging of the left knee is performed without IV contrast. FINDINGS: There are screw tracks present along the patella, distal metaphyseal left femur with some s usceptibility artifact, associated marrow signal changes. There is improvement in the inflammatory ch anges noted along these access points medially. 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 MEDIAL MENISCUS: Anterior and posterior horns are stable, some increased signal at the posterior horn the medial meniscus does not definitely extend to the articular surface. LATERAL MENISCUS: Anterior and posterior horns are intact without tear. CRUCIATE LIGAMENTS: The anterior and posterior cruciate ligaments are intact and unremarkable. COLLATERAL LIGAMENTS: The medial collateral ligament and lateral collateral ligament complex are inta ct and unremarkable. EXTENSOR MECHANISM: Visualized quadriceps and patellar tendons are intact. EFFUSION: Joint effusion is present which slightly bigger than on prior exam. POPLITEAL CYST: No popliteal/malik cyst. TRICOMPARTMENT SPACES: Stable CARTILAGE: No interval change, no significant chondromalacia BONE MARROW SIGNAL: No focal abnormal marrow signal is appreciated. OTHER: Oval area of mildly increased signal measuring 12 mm in transverse dimension by 1 cm in cepha lad to caudal dimension by 4 mm in anterior to posterior dimension present with possible smaller focu s just superiorly, coronal image #7, axial image #31, sagittal image 14 within the suprapatellar join t effusion. IMPRESSION: There is some slight increase in the amount of joint fluid as compared to prior exam. Postop changes are again seen. Possible loose body.
== END | disposition home or self-care (01) ==
LOC: RADMRIMAIN 09:50
PROVIDERS: ATTEND Orthopaedic Surgery
DX: M25.562 Pain in left knee (principal)

== ENCOUNTER 2021-05-07 08:19 | Day surgery (SDC) | payer OTHER ==
[2021-05-05 10:05] VITALS: BMI 32.8
[~2021-05-07 08:19] MED LIST: DEXAMETHASONE SOD PHOSPHATE 4 MG/ML 1 ML VIAL IV ONE; HYDROmorphone 0.5 MG/0.5 ML SYRINGE IVP PRN; LACTATED RINGERS 1,000 ML IV SCH; ONDANSETRON 4 MG/2 ML VIAL IVP ONE
[2021-05-07] MEDS ORDERED: LIDOCAINE 1% (10MG/ML) FOR IV START INTRADERMA ONE (09:00)
[2021-05-07] MEDS ORDERED: LIDOCAINE 1% INJ 10MG/ML (20 ML MDV) ONE (09:19)
[2021-05-07] MEDS ORDERED: MIDAZOLAM 2 MG/2 ML VIAL ONE (09:19)
[2021-05-07] MEDS ORDERED: PROPOFOL 10 MG/ML 20 ML VIAL IV ONE (09:19)
[2021-05-07] MEDS ORDERED: fentaNYL (PF) 50 MCG/ML 2 ML AMP ONE (09:19)
[2021-05-07] MEDS ORDERED: BUPIVACAINE (PF) 0.25% 30 ML VIAL SQ ONE ×2 (09:37→09:47)
[2021-05-07 09:39] LABS: Basophils % (A) 1 %; Eosinophils # (A) 0.4 k/uL (0-0.7); Eosinophils % (A) 6 %; HCT 43.8 % (34.0-46.0); HGB 14.6 gm/dL (11.4-16.0); Lymphocytes # (A) 2.3 k/uL (1.0-4.8); Lymphocytes % (A) 31 %; MCH 28.7 pg (25.0-35.0); MCHC 33.3 g/dL (31.0-37.0); MCV 86.2 fL (80.0-100.0); Monocytes # (A) 0.3 k/uL (0-1.0); Monocytes % (A) 4 %; Neutrophils # (A) 4.1 k/uL (1.3-7.7); Neutrophils % (A) 56 %; Platelet Count 358 k/uL (150-450); RBC 5.09 m/uL (3.80-5.40); RDW 13.7 % (11.5-15.5); WBC 7.3 k/uL (3.8-10.6)
[2021-05-07 10:02] VITALS: TEMP 96.9
--- NOTE | 2021-05-07 10:02 | P.OP ---
Date of Procedure: 05/07/21 Preoperative Diagnosis: Internal derangement left knee Postoperative Diagnosis: 1. Tear medial meniscus left knee 2. Medial plica left knee 3. Reactive synovitis medial, lateral and suprapatellar compartments left knee Procedure(s) Performed: 1. Arthroscopic partial medial meniscectomy left knee 2. Arthroscopic resection medial plica left knee 3. Arthroscopic partial synovectomy medial, lateral and suprapatellar compartments left knee Anesthesia: SE[place]ST[place], local Surgeon: Claudio Toth Estimated Blood Loss (ml): 7 Pathology: none sent Condition: stable Disposition: PACU Indications for Procedure: 25-year-old patient seen with progressive left knee pain. After treatment options were discussed, she elected to proceed with arthroscopy. Operative Findings: See description of procedure Description of Procedure: Patient was taken to the operative suite. Patient underwent a general anesthetic by the department of anesthesia. Patient was given preoperative antibiotics. The left lower extremity was placed in a well-padded arthroscopic leg burnette. The left leg was prepped and draped in the normal sterile orthopedic fashion. A lateral parapatellar and suprapatellar incision was made. Trochars were inserted. Arthroscopy was initiated. Suprapatellar pouch revealed diffuse thick reactive synovitis. The patellofemoral joint appeared to articulate congruently. 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 The scope was guided into the medial gutter. There was a medial plica which did impinge along the medial femoral condyle with range of motion. The scope was then guided into the medial compartment. A medial parapatellar incision was made. Trocar inserted followed by probe. There was a small radial tear involving the pos terior horn medial meniscus. There was no significant chondromalacia. There was some thick reactive synovitis anteriorly. I performed a partial medial meniscectomy getting down to stable meniscal tissue. I performed a partial synovectomy decompressing the thick reactive synovitis. The shaver was removed. The residual meniscus was probed and it was found to be stable. There was good decompression of the synovitis. Scope and probe were then guided into the intercondylar notch. Cruciates were identified, probed and found to be stable. The scope and probe were then guided into lateral compartment. Lateral meniscus was probed and found to be stable. There was no chondromalacia present. There was some thick reactive synovitis anteriorly. I introduced a motorized shaver and performed a partial synovectomy decompressing the reactive synovitis. The shaver was removed. There was good decompression of the synovitis. The scope was in guided back into the suprapatellar compartment. I introduced a motorized shaver and I resected that medial plica. I performed a partial synovectomy decompressing the thick reactive synovitis within the suprapatellar compartment. The shaver was removed. I noted complete resection of the plica. There was no impingement at this point with range of motion of the knee. There was good decompression of the synovitis. I took one more look throughout the knee, no evidence for debris. Instruments were now removed from the joint. The joint was infiltrated with .25% Marcaine. Steri-Strips were applied to the portal sites. Sterile dressings were applied. The patient was placed into a CARYN hose. No tourniquet was utilized. The patient was awakened, transferred to a bed and taken to recovery stable satisfactory condition.
[2021-05-07 10:12] VITALS: RESP 16
[2021-05-07] MEDS ORDERED: traMADol 50 MG TAB ONE (10:58)
[2021-05-07] MEDS ORDERED: traMADol 50 MG TAB PO ONE (11:02)
[2021-05-07 11:19] VITALS: BP 110/74; PULSE 74
== END 2021-05-07 11:10 | disposition home or self-care (01) ==
LOC: OR 08:19
PROVIDERS: ATTEND Orthopaedic Surgery
DX: M23.204 Derangement of unspecified medial meniscus due to old tear or injury, left knee (principal); M67.52 Plica syndrome, left knee; M65.862 Other synovitis and tenosynovitis, left lower leg; J45.909 Unspecified asthma, uncomplicated; F41.9 Anxiety disorder, unspecified; F17.209 Nicotine dependence, unspecified, with unspecified nicotine-induced disorders; F32.9 Major depressive disorder, single episode, unspecified; K21.9 Gastro-esophageal reflux disease without esophagitis; Z98.890 Other specified postprocedural states; Z79.899 Other long term (current) drug therapy; Z88.1 Allergy status to other antibiotic agents; Z88.0 Allergy status to penicillin; Z88.2 Allergy status to sulfonamides; Z91.040 Latex allergy status; Z91.018 Allergy to other foods
CPT/HCPCS: 81025; 80051; 85025; 29881; 29876; J2250; J1100; J0690; J2405; J2001; J3010; J2704

== ENCOUNTER 2021-05-08 22:44 | Emergency (ER) | payer OTHER ==
[2021-05-08 22:48] VITALS: PULSE 72; RESP 18; TEMP 97.9
[2021-05-08] MEDS ORDERED: SODIUM CHLORIDE 0.9% 1,000 ML IV STA (23:00)
[2021-05-08] MEDS ORDERED: ONDANSETRON 4 MG/2 ML VIAL IVP STA (23:01)
--- NOTE | 2021-05-08 23:06 | ED ---
Nausea/Vomiting/Diarrhea HPI - General Chief complaint: Nausea/Vomiting/Diarrhea Stated complaint: Weakness Time Seen by Provider: 05/08/21 22:49 Source: patient Mode of arrival: wheelchair Limitations: no limitations - History of Present Illness Initial comments: 25-year-old female presents to emergency Department with a chief complaint of weakness. States her symptoms began about one hour prior to arrival. Patient reports fairly sudden onset of nausea vomiting along with tremors in her hands. She also reports having a "flushed feeling". States she took tramadol around 8:00 tonight that was prescribed to her by the orthopedic physician. She reports chills but denies any fevers. Denies any pain or any complaints regarding the surgical site in the left knee. Denies any chest pain or shortness of breath. Denies any cough or URI-like symptoms. Denies any vaginal or urinary symptoms. - Related Data Home Medications Medication Instructions Recorded Confirmed Montelukast [Singulair] 10 mg PO HS 09/01/17 05/07/21 Albuterol Sulfate [Proair Hfa] 1 puff INHALATION Q6HR PRN 05/05/21 05/07/21 Butalb/Acetaminophen/Caffeine 1 tab PO DIRECTED PRN 05/05/21 05/07/21 [Esgic 50-325-40 mg Tablet] Citalopram Hydrobromide [CeleXA] 20 mg PO HS 05/05/21 05/07/21 Topiramate [Topamax] 25 mg PO HS 05/05/21 05/07/21 clonazePAM [KlonoPIN] 0.5 mg PO BID PRN 05/05/21 05/07/21 Previous Rx's Medication Instructions Recorded traMADol HCl [Ultram] 50 mg PO Q6H PRN #20 tab 05/07/21 Allergies Allergy/AdvReac Type Severity Reaction Status Date / Time amoxicillin [Amoxicillin] Allergy Rash/Hives Verified 05/08/21 22:46 banana Allergy Unknown Verified 05/08/21 22:46 coconut Allergy Unknown Verified 05/08/21 22:46 cucumber Allergy Unknown Verified 05/08/21 22:46 doxycycline Allergy Dyspnea Verified 05/08/21 22:46 latex Allergy Rash/Hives Verified 05/08/21 22:46 farhad Allergy Unknown Verified 05/08/21 22:46 pineapple Allergy Unknown Verified 05/08/21 22:46 sulfamethoxazole Allergy Dyspnea Verified 05/08/21 22:46 [From Bactrim] trimethoprim [From Bactrim] Allergy Dyspnea Verified 05/08/21 22:46 tropical fruit Allergy Swelling Uncoded 05/08/21 22:46 Review of Systems ROS Statement: Those systems with pertinent positive or pertinent negative responses have been documented in the HPI. ROS Other: All systems not noted in ROS Statement are negative. Past Medical History Past Medical History: Asthma, GERD/Reflux Additional Past Medical History / Comment(s): migraines, History of Any Multi-Drug Resistant Organisms: MRSA Date of last positivie culture/infection: 2017 MDRO Source:: under rt eye Past Surgical History: Orthopedic Surgery Additional Past Surgical History / Comment(s): left knee surgery, oral surgery Past Anesthesia/Blood Transfusion Reactions: No Reported Reaction Past Psychological History: Anxiety, Depression Smoking Status: Current every day smoker Past Alcohol Use History: Rare Past Drug Use History: None Reported - Past Family History Mother Family Medical History: Cancer Additional Family Medical History / Comment(s): melanoma General Exam Limitations: no limitations General appearance: alert, in no apparent distress Head exam: Present: atraumatic, normocephalic, normal inspection Eye exam: Present: normal appearance, PERRL, EOMI Pupils: Present: normal accommodation ENT exam: Present: normal exam, normal oropharynx, mucous membranes moist Neck exam: Present: normal inspection, full ROM. Absent: tenderness, lymphadenopathy Respiratory exam: Present: normal lung sounds bilaterally. Absent: respiratory distress Cardiovascular Exam: Present: regular rate, normal rhythm, normal heart sounds Extremities exam: Present: normal inspection, full ROM. Absent: tenderness Back exam: Present: normal inspection, full ROM. Absent: tenderness, CVA tenderness (R), CVA tenderness (L) Neurological exam: Present: alert, oriented X3 Psychiatric exam: Present: normal affect, normal mood Skin exam: Present: warm, dry, intact, normal color Course Vital Signs 05/08/21 05/09/21 22:46 00:57 Temperature 97.9 F 97.9 F Pulse Rate 72 72 Respiratory 18 18 Rate Blood Pressure 123/77 124/88 O2 Sat by Pulse 98 98 Oximetry Medical Decision Making - Medical Decision Making 25-year-old female presents to emergency Department with a chief complaint of weakness. On physical examination, patient is slightly tremulous and bilateral proximities. She is otherwise neurovascularly intact in the lateral lower extremities. Lungs are clear to auscultation. Her vital signs are within normal limits. CBC reveals a leukocytosis of 10.7, likely reactive vomiting. CMP unremarkable. UA shows no acute infection. CT chest angiogram negative for PE. Patient was given IV fluids and Zofran. On reevaluation, patient reports improvement in symptoms. She will be discharged with outpatient follow-up. Return parameters were thoroughly discussed the patient was understanding and agreeable. Case discussed with - Lab Data Result diagrams: 05/08/21 23:23 05/08/21 23:23 Lab Results 05/08/21 05/08/21 05/08/21 Range/Units 23:23 23:23 23:23 WBC 10.7 H (3.8-10.6) k/uL RBC 4.73 (3.80-5.40) m/uL Hgb 14.1 (11.4-16.0) gm/dL Hct 39.9 (34.0-46.0) % MCV 84.5 (80.0-100.0) fL MCH 29.8 (25.0-35.0) pg MCHC 35.3 (31.0-37.0) g/dL RDW 13.2 (11.5-15.5) % Plt Count 345 (150-450) k/uL MPV 6.9 Neutrophils % 54 % Lymphocytes % 37 % Monocytes % 4 % Eosinophils % 3 % Basophils % 1 % Neutrophils # 5.8 (1.3-7.7) k/uL Lymphocytes # 4.0 (1.0-4.8) k/uL Monocytes # 0.5 (0-1.0) k/uL Eosinophils # 0.3 (0-0.7) k/uL Basophils # 0.1 (0-0.2) k/uL Sodium 139 (137-145) mmol/L Potassium 4.0 (3.5-5.1) mmol/L Chloride 109 H (98-107) mmol/L Carbon Dioxide 21 L (22-30) mmol/L Anion Gap 9 mmol/L BUN 11 (7-17) mg/dL Creatinine 0.66 (0.52-1.04) mg/dL Est GFR (CKD-EPI)AfAm >90 (>60 ml/min/1.73 sqM) Est GFR (CKD-EPI)NonAf >90 (>60 ml/min/1.73 sqM) Glucose 86 (74-99) mg/dL Calcium 9.6 (8.4-10.2) mg/dL Total Bilirubin 0.4 (0.2-1.3) mg/dL AST 21 (14-36) U/L ALT 21 (4-34) U/L Alkaline Phosphatase 87 (38-126) U/L Total Protein 6.8 (6.3-8.2) g/dL Albumin 4.1 (3.5-5.0) g/dL Urine Color Light Yellow Urine Appearance Clear (Clear) Urine pH 5.5 (5.0-8.0) Ur Specific [place] 1.007 (1.001-1.035) Urine Protein Negative (Negative) Urine Glucose (UA) Negative (Negative) Urine Ketones Negative (Negative) Urine Blood Negative (Negative) Urine Nitrite Negative (Negative) Urine Bilirubin Negative (Negative) Urine Urobilinogen <2.0 (<2.0) mg/dL Ur Leukocyte Esterase Negative (Negative) - EKG Data EKG Comments: Sinus arrhythmia Ventricular rate 62, [place] 160, QRS 90, QTC 468. Disposition Clinical Impression: Weakness Disposition: HOME SELF-CARE Condition: Stable Instructions (If sedation given, give patient instructions): Weakness (ED) Additional Instructions: Please return to the Emergency Department if symptoms worsen or any other concerns. Is patient prescribed a controlled substance at d/c from ED?: No Referrals: Benson Chen DO [Primary Care Provider] - 1-2 days Time of Disposition: 00:45
[2021-05-08 23:55] LABS: Appearance,Urine Clear (Clear); Bilirubin,Urine Negative (Negative); Blood,Urine Negative (Negative); Color,Urine Light Yellow; Glucose,Urine (UA) Negative (Negative); Ketones,Urine Negative (Negative); Leukocyte Esterase,Urine Negative (Negative); Nitrite,Urine Negative (Negative); PH, Urine 5.5 (5.0-8.0); Protein,Urine Negative (Negative); Specific Gravity,Urine 1.007 (1.001-1.035); Urobilinogen,Urine <2.0 mg/dL (<2.0)
[2021-05-08 23:56] LABS: Basophils # (A) 0.1 k/uL (0-0.2); Basophils % (A) 1 %; Eosinophils # (A) 0.3 k/uL (0-0.7); Eosinophils % (A) 3 %; HCT 39.9 % (34.0-46.0); HGB 14.1 gm/dL (11.4-16.0); Lymphocytes % (A) 37 %; MCH 29.8 pg (25.0-35.0); MCHC 35.3 g/dL (31.0-37.0); MCV 84.5 fL (80.0-100.0); Mean Platelet Volume 6.9; Monocytes # (A) 0.5 k/uL (0-1.0); Monocytes % (A) 4 %; Neutrophils # (A) 5.8 k/uL (1.3-7.7); Neutrophils % (A) 54 %; Platelet Count 345 k/uL (150-450); RBC 4.73 m/uL (3.80-5.40); RDW 13.2 % (11.5-15.5); WBC 10.7 k/uL (3.8-10.6)
[2021-05-09 00:32] LABS: ALT 21 U/L (4-34); AST 21 U/L (14-36); African American GFR (CKD) >90 (>60 ml/min/1.73 sqM); Albumin 4.1 g/dL (3.5-5.0); Alkaline Phosphatase 87 U/L (38-126); Anion Gap 9 mmol/L; Blood Urea Nitrogen 11 mg/dL (7-17); Calcium 9.6 mg/dL (8.4-10.2); Carbon Dioxide 21 mmol/L (22-30); Chloride 109 mmol/L (98-107); Glucose 86 mg/dL (74-99); Non-African American GFR(CKD) >90 (>60 ml/min/1.73 sqM); Sodium 139 mmol/L (137-145); Total Bilirubin 0.4 mg/dL (0.2-1.3); Total Protein 6.8 g/dL (6.3-8.2)
--- NOTE | 2021-05-09 00:40 | CT ---
EXAMINATION TYPE: CT chest angio for PE DATE OF EXAM: 05/09/2021 COMPARISON: None HISTORY: POST OP WEAKNESS CT DLP: 452.6 mGycm Automated exposure control for dose reduction was used. CONTRAST: Performed with IV Contrast, patient injected with 100ML mL of Isovue 370. Images obtained from the thoracic inlet to the diaphragm with IV contrast. There are 3-D post process ed images. The lungs are clear of consolidation. There is no evidence of a pulmonary mass. There is no pleural e ffusion. Heart size is normal. There is no pericardial effusion. There are no hilar masses. There is no mediastinal adenopathy. Thoracic aorta is intact. There is no aneurysm or dissection. There is normal contrast opacification of the pulmonary arteries. There are no filling defects. The b paul thorax is intact. There is no compression fracture. IMPRESSION: No evidence of pulmonary embolism. Negative exam.
[2021-05-09 00:59] VITALS: BP 124/88
== END 2021-05-09 01:02 | disposition home or self-care (01) ==
LOC: EC 22:44
DX: R53.1 Weakness (principal); R11.2 Nausea with vomiting, unspecified; R19.7 Diarrhea, unspecified; D72.829 Elevated white blood cell count, unspecified; R25.1 Tremor, unspecified; F17.200 Nicotine dependence, unspecified, uncomplicated; J45.909 Unspecified asthma, uncomplicated; Z88.0 Allergy status to penicillin; Z88.1 Allergy status to other antibiotic agents; Z88.2 Allergy status to sulfonamides; Z91.040 Latex allergy status; Z91.018 Allergy to other foods
CPT/HCPCS: 36415; 93005; 80053; 85025; 81003; 71275; 99284; 96374; J2405; Q9967

== ENCOUNTER 2021-05-28 15:25 | Emergency (ER) | payer OTHER ==
[2021-05-28 15:53] VITALS: TEMP 98.4
[2021-05-28] MEDS ORDERED: ONDANSETRON 4 MG/2 ML VIAL IVP STA (16:42)
[2021-05-28] MEDS ORDERED: PANTOPRAZOLE 40 MG/10 ML VIAL IVP STA (16:42)
[2021-05-28] MEDS ORDERED: SODIUM CHLORIDE 0.9% 1,000 ML IV STA (16:42)
[2021-05-28 17:19] LABS: Basophils # (A) 0.1 k/uL (0-0.2); Basophils % (A) 1 %; Eosinophils # (A) 0.3 k/uL (0-0.7); Eosinophils % (A) 3 %; HCT 40.1 % (34.0-46.0); Lymphocytes # (A) 1.9 k/uL (1.0-4.8); Lymphocytes % (A) 18 %; MCH 29.5 pg (25.0-35.0); MCV 84.3 fL (80.0-100.0); Mean Platelet Volume 6.9; Monocytes # (A) 0.4 k/uL (0-1.0); Monocytes % (A) 4 %; Neutrophils # (A) 7.7 k/uL (1.3-7.7); Neutrophils % (A) 73 %; Platelet Count 333 k/uL (150-450); RBC 4.76 m/uL (3.80-5.40); RDW 13.1 % (11.5-15.5); WBC 10.5 k/uL (3.8-10.6)
[2021-05-28 17:27] LABS: Appearance,Urine Clear (Clear); Bilirubin,Urine Negative (Negative); Blood,Urine Negative (Negative); Color,Urine Yellow; Glucose,Urine (UA) Negative (Negative); Hyaline Casts,Urine 1 /lpf (0-2); Ketones,Urine Negative (Negative); Leukocyte Esterase,Urine Trace (Negative); Mucus,Urine Rare /hpf; Nitrite,Urine Negative (Negative); PH, Urine 5.5 (5.0-8.0); Protein,Urine Negative (Negative); RBC,Urine 1 /hpf (0-5); Specific Gravity,Urine 1.012 (1.001-1.035); Squamous Epithelial Cell,Urine 2 /hpf (0-4); Urobilinogen,Urine <2.0 mg/dL (<2.0); WBC,Urine 2 /hpf (0-5)
[2021-05-28 17:33] LABS: ALT 48 U/L (4-34); AST 29 U/L (14-36); African American GFR (CKD) >90 (>60 ml/min/1.73 sqM); Albumin 4.1 g/dL (3.5-5.0); Alkaline Phosphatase 123 U/L (38-126); Anion Gap 9 mmol/L; Blood Urea Nitrogen 10 mg/dL (7-17); Calcium 9.5 mg/dL (8.4-10.2); Carbon Dioxide 22 mmol/L (22-30); Chloride 108 mmol/L (98-107); Glucose 84 mg/dL (74-99); Magnesium 1.9 mg/dL (1.6-2.3); Non-African American GFR(CKD) >90 (>60 ml/min/1.73 sqM); Potassium 4.2 mmol/L (3.5-5.1); Sodium 139 mmol/L (137-145); Total Bilirubin 0.5 mg/dL (0.2-1.3); Total Protein 6.7 g/dL (6.3-8.2)
[2021-05-28 17:48] LABS: HCG,Quantitative Serum <2.4 mIU/mL
--- NOTE | 2021-05-28 18:17 | ED ---
GI Bleed HPI - General Chief complaint: GI Bleed Stated complaint: GI Bleed Time Seen by Provider: 05/28/21 16:31 Source: patient Mode of arrival: ambulatory Limitations: no limitations - History of Present Illness Initial comments: 25-year-old female presents to the emergency department with a chief complaint of rectal bleeding. Patient reports this is an ongoing for the past several days. She reports bright red blood after she has bowel movements that it only occurs with bowel movements. However, she denies any painful bowel movements. She does not have any history of previous rectal bleeding or hemorrhoids but states she may have a hemorrhoid. She denies any associated nausea vomiting or diarrhea. States she otherwise has solid bowel movements. She denies any urinary or vaginal symptoms. She denies any abdominal pain chest pain shortness of breath. - Related Data Home Medications Medication Instructions Recorded Confirmed Montelukast [Singulair] 10 mg PO HS 09/01/17 05/28/21 Albuterol Sulfate [Proair Hfa] 1 puff INHALATION RT-Q6H PRN 05/05/21 05/28/21 Citalopram Hydrobromide [CeleXA] 20 mg PO HS 05/05/21 05/28/21 Topiramate [Topamax] 25 mg PO HS 05/05/21 05/28/21 clonazePAM [KlonoPIN] 0.5 mg PO HS PRN 05/05/21 05/28/21 Butalb/APAP/Caff 50-325-40Mg 1 tab PO Q8H PRN 05/28/21 05/28/21 [Fioricet 50-325-40] Allergies Allergy/AdvReac Type Severity Reaction Status Date / Time amoxicillin [Amoxicillin] Allergy Rash/Hives Verified 05/28/21 18:15 banana Allergy Unknown Verified 05/28/21 18:15 coconut Allergy Unknown Verified 05/28/21 18:15 cucumber Allergy Unknown Verified 05/28/21 18:15 doxycycline Allergy Dyspnea Verified 05/28/21 18:15 latex Allergy Rash/Hives Verified 05/28/21 18:15 farhad Allergy Unknown Verified 05/28/21 18:15 pineapple Allergy Unknown Verified 05/28/21 18:15 sulfamethoxazole Allergy Dyspnea Verified 05/28/21 18:15 [From Bactrim] trimethoprim [From Bactrim] Allergy Dyspnea Verified 05/28/21 18:15 tropical fruit Allergy Swelling Uncoded 05/28/21 15:53 Review of Systems ROS Statement: Those systems with pertinent positive or pertinent negative responses have been documented in the HPI. ROS Other: All systems not noted in ROS Statement are negative. Past Medical History Past Medical History: Asthma, GERD/Reflux Additional Past Medical History / Comment(s): migraines, History of Any Multi-Drug Resistant Organisms: MRSA Date of last positivie culture/infection: 2017 MDRO Source:: under rt eye Past Surgical History: Orthopedic Surgery Additional Past Surgical History / Comment(s): left knee surgery, oral surgery Past Anesthesia/Blood Transfusion Reactions: No Reported Reaction Past Psychological History: Anxiety, Depression Smoking Status: Current every day smoker Past Alcohol Use History: Rare Past Drug Use History: None Reported - Past Family History Mother Family Medical History: Cancer Additional Family Medical History / Comment(s): melanoma General Exam Limitations: no limitations General appearance: alert, in no apparent distress, obese Head exam: Present: atraumatic, normocephalic, normal inspection Eye exam: Present: normal appearance Pupils: Present: normal accommodation ENT exam: Present: normal exam, normal oropharynx, mucous membranes moist Neck exam: Present: normal inspection, full ROM. Absent: tenderness, lymphadenopathy Respiratory exam: Present: normal lung sounds bilaterally. Absent: respiratory distress Cardiovascular Exam: Present: regular rate, normal rhythm, normal heart sounds. Absent: systolic murmur GI/Abdominal exam: Present: soft. Absent: distended, tenderness, guarding, rebound, rigid Rectal exam: Present: normal inspection, normal rectal tone. Absent: black st ool, hemorrhoids Extremities exam: Present: normal inspection, full ROM Back exam: Present: normal inspection, full ROM Neurological exam: Present: alert, oriented X3 Psychiatric exam: Present: normal affect, normal mood Skin exam: Present: warm, dry, intact, normal color Course Vital Signs 05/28/21 05/28/21 15:51 18:41 Temperature 98.4 F Pulse Rate 92 68 Respiratory 20 16 Rate Blood Pressure 104/76 103/77 O2 Sat by Pulse 99 100 Oximetry Medical Decision Making - Medical Decision Making 25-year-old male presents emergency Department with a chief complaint of rectal bleeding. On Physical examination, no tenderness with rectal examination. No s igns of external hemorrhoids. Laboratory work is unremarkable. She was positive for stool culture. I do suspect the cause to be an internal hemorrhoid for the cause of this pain was bleeding. Advised to follow with a GI specialist. Return parameters were thoroughly discussed with patient is an attending agreeable. Case discussed with Dr. Villagran. - Lab Data Result diagrams: 05/28/21 16:57 05/28/21 16:57 Lab Results 05/28/21 05/28/21 05/28/21 Range/Units 16:57 16:57 16:57 WBC 10.5 (3.8-10.6) k/uL RBC 4.76 (3.80-5.40) m/uL Hgb 14.0 (11.4-16.0) gm/dL Hct 40.1 (34.0-46.0) % MCV 84.3 (80.0-100.0) fL MCH 29.5 (25.0-35.0) pg MCHC 35.0 (31.0-37.0) g/dL RDW 13.1 (11.5-15.5) % Plt Count 333 (150-450) k/uL MPV 6.9 Neutrophils % 73 % Lymphocytes % 18 % Monocytes % 4 % Eosinophils % 3 % Basophils % 1 % Neutrophils # 7.7 (1.3-7.7) k/uL Lymphocytes # 1.9 (1.0-4.8) k/uL Monocytes # 0.4 (0-1.0) k/uL Eosinophils # 0.3 (0-0.7) k/uL Basophils # 0.1 (0-0.2) k/uL APTT 23.9 (22.0-30.0) sec Sodium 139 (137-145) mmol/L Potassium 4.2 (3.5-5.1) mmol/L Chloride 108 H (98-107) mmol/L Carbon Dioxide 22 (22-30) mmol/L Anion Gap 9 mmol/L BUN 10 (7-17) mg/dL Creatinine 0.51 L (0.52-1.04) mg/dL Est GFR (CKD-EPI)AfAm >90 (>60 ml/min/1.73 sqM) Est GFR (CKD-EPI)NonAf >90 (>60 ml/min/1.73 sqM) Glucose 84 (74-99) mg/dL Calcium 9.5 (8.4-10.2) mg/dL Magnesium 1.9 (1.6-2.3) mg/dL Total Bilirubin 0.5 (0.2-1.3) mg/dL AST 29 (14-36) U/L ALT 48 H (4-34) U/L Alkaline Phosphatase 123 (38-126) U/L Troponin I (0.000-0.034) ng/mL Total Protein 6.7 (6.3-8.2) g/dL Albumin 4.1 (3.5-5.0) g/dL HCG, Quant <2.4 mIU/mL Urine Color Urine Appearance (Clear) Urine pH (5.0-8.0) Ur Specific [place] (1.001-1.035) Urine Protein (Negative) Urine Glucose (UA) (Negative) Urine Ketones (Negative) Urine Blood (Negative) Urine Nitrite (Negative) Urine Bilirubin (Negative) Urine Urobilinogen (<2.0) mg/dL Ur Leukocyte Esterase (Negative) Urine RBC (0-5) /hpf Urine WBC (0-5) /hpf Ur Squamous Epith Cells (0-4) /hpf Hyaline Casts (0-2) /lpf Urine Mucus (None) /hpf Stool Occult Blood (Negative) 05/28/21 05/28/21 05/28/21 Range/Units 16:57 16:57 16:57 WBC (3.8-10.6) k/uL RBC (3.80-5.40) m/uL Hgb (11.4-16.0) gm/dL Hct (34.0-46.0) % MCV (80.0-100.0) fL MCH (25.0-35.0) pg MCHC (31.0-37.0) g/dL RDW (11.5-15.5) % Plt Count (150-450) k/uL MPV Neutrophils % % Lymphocytes % % Monocytes % % Eosinophils % % Basophils % % Neutrophils # (1.3-7.7) k/uL Lymphocytes # (1.0-4.8) k/uL Monocytes # (0-1.0) k/uL Eosinophils # (0-0.7) k/uL Basophils # (0-0.2) k/uL APTT (22.0-30.0) sec Sodium (137-145) mmol/L Potassium (3.5-5.1) mmol/L Chloride (98-107) mmol/L Carbon Dioxide (22-30) mmol/L Anion Gap mmol/L BUN (7-17) mg/dL Creatinine (0.52-1.04) mg/dL Est GFR (CKD-EPI)AfAm (>60 ml/min/1.73 sqM) Est GFR (CKD-EPI)NonAf (>60 ml/min/1.73 sqM) Glucose (74-99) mg/dL Calcium (8.4-10.2) mg/dL Magnesium (1.6-2.3) mg/dL Total Bilirubin (0.2-1.3) mg/dL AST (14-36) U/L ALT (4-34) U/L Alkaline Phosphatase (38-126) U/L Troponin I <0.012 (0.000-0.034) ng/mL Total Protein (6.3-8.2) g/dL Albumin (3.5-5.0) g/dL HCG, Quant mIU/mL Urine Color Yellow Urine Appearance Clear (Clear) Urine pH 5.5 (5.0-8.0) Ur Specific [place] 1.012 (1.001-1.035) Urine Protein Negative (Negative) Urine Glucose (UA) Negative (Negative) Urine Ketones Negative (Negative) Urine Blood Negative (Negative) Urine Nitrite Negative (Negative) Urine Bilirubin Negative (Negative) Urine Urobilinogen <2.0 (<2.0) mg/dL Ur Leukocyte Esterase Trace H (Negative) Urine RBC 1 (0-5) /hpf Urine WBC 2 (0-5) /hpf Ur Squamous Epith Cells 2 (0-4) /hpf Hyaline Casts 1 (0-2) /lpf Urine Mucus Rare H (None) /hpf Stool Occult Blood Positive H (Negative) Disposition Clinical Impression: Painless rectal bleeding Disposition: HOME SELF-CARE Condition: Stable Instructions (If sedation given, give patient instructions): Hemorrhoids (DC), Rectal Bleeding (ED) Additional Instructions: Please return to the Emergency Department if symptoms worsen or any other concerns. Is patient prescribed a controlled substance at d/c from ED?: No Referrals: Benson Chen DO [Primary Care Provider] - 1-2 days Vivien Okeefe MD [STAFF PHYSICIAN] - 1-2 days Time of Disposition: 18:17
[2021-05-28 18:41] VITALS: BP 103/77; PULSE 68; RESP 16
== END 2021-05-28 18:41 | disposition home or self-care (01) ==
LOC: EC 15:25
DX: K62.5 Hemorrhage of anus and rectum (principal); F17.200 Nicotine dependence, unspecified, uncomplicated; J45.909 Unspecified asthma, uncomplicated; Z88.0 Allergy status to penicillin; Z88.1 Allergy status to other antibiotic agents; Z88.2 Allergy status to sulfonamides; Z91.040 Latex allergy status; Z91.018 Allergy to other foods
CPT/HCPCS: 36415; 80053; 83735; 84484; 85025; 85730; 82272; 81001; 84702; 99284; 96374; 96361; C9113

== ENCOUNTER 2022-04-30 17:13 | Emergency (ER) | payer BC, OTHER ==
[2022-04-30 17:36] VITALS: BP 105/71; PULSE 89; RESP 16; TEMP 98.2
[2022-04-30] MEDS ORDERED: FLUORESCEIN STRIPS 1 MG STRIP LEFT EYE ONE (17:50)
[2022-04-30] MEDS ORDERED: PROPARACAINE 0.5% OPHTH DROPS 15 ML BTL LEFT EYE STA (17:51)
--- NOTE | 2022-04-30 18:08 | ED ---
Eye Problem HPI - General Chief complaint: Eye Problems Stated complaint: L eye red and swollen Time Seen by Provider: 04/30/22 17:47 Source: patient Mode of arrival: ambulatory Limitations: no limitations - History of Present Illness Initial comments: Patient is a 26-year-old female presenting with chief complaint of left eye discomfort. Patient states that earlier today she felt a sensation of dust or pollen in the eye, a few hours later she noticed increased swelling, tearing, redness of the eye. Patient does not work contact lenses. She denies any current foreign body sensation. She denies any visual changes. Denies any pain with extraocular movements. No fever or chills. No neck pain or stiffness or headache. No discharge from the eye. - Related Data Allergies Allergy/AdvReac Type Severity Reaction Status Date / Time amoxicillin Allergy Unknown Verified 04/30/22 17:38 avocado Allergy Unknown Verified 04/30/22 17:38 corn Allergy Unknown Verified 04/30/22 17:38 cucumber Allergy Unknown Verified 04/30/22 17:38 doxycycline Allergy Unknown Verified 04/30/22 17:38 egg Allergy Unknown Verified 04/30/22 17:38 latex Allergy Unknown Verified 04/30/22 17:38 peanut Allergy Unknown Verified 04/30/22 17:38 pineapple Allergy Unknown Verified 04/30/22 17:38 sulfamethoxazole Allergy Unknown Verified 04/30/22 17:38 [From Bactrim] trimethoprim [From Bactrim] Allergy Unknown Verified 04/30/22 17:38 wheat Allergy Unknown Verified 04/30/22 17:38 canteloupe Allergy Unknown Uncoded 04/30/22 17:38 Review of Systems ROS Statement: Those systems with pertinent positive or pertinent negative responses have been documented in the HPI. ROS Other: All systems not noted in ROS Statement are negative. Past Medical History Past Medical History: Asthma History of Any Multi-Drug Resistant Organisms: None Reported Past Surgical History: Orthopedic Surgery Additional Past Surgical History / Comment(s): knee surgery Past Psychological History: Anxiety, Depression Smoking Status: Vaper Past Alcohol Use History: None Reported Past Drug Use History: None Reported General Exam Limitations: no limitations General appearance: alert, in no apparent distress Head exam: Present: atraumatic, normocephalic, normal inspection Eye exam: Present: PERRL, EOMI, conjunctival injection. Absent: scleral icterus, periorbital swelling, periorbital tenderness Pupils: Present: normal accommodation Neck exam: Present: normal inspection Neurological exam: Present: alert, oriented X3, CN II-XII intact Psychiatric exam: Present: normal affect, normal mood Skin exam: Present: warm, dry, intact, normal color. Absent: rash Course Vital Signs 04/30/22 17:34 Temperature 98.2 F Pulse Rate 89 Respiratory 16 Rate Blood Pressure 105/71 O2 Sat by Pulse 98 Oximetry Medical Decision Making - Medical Decision Making Patient is a 26-year-old female presenting with chief complaint of left eye irritation. Patient states that this occurred after feeling a sensation of dust or pollen in the eye. She admits to redness, swelling, tearing. She is not a contact lens wear. On examination there is some scleral injection and chemosis noted. Extraocular motions are intact, pupils are equal, round, reactive, accommodating. Wood's lamp staining shows no sign of corneal abrasion. Eyelid eversion shows no foreign body. Explained the patient this is likely in response to ALLERGIES. I advised [id number] antihistamine eyedrops such as xyzal. Follow-up with PCP this week. Report back to ER if any new or worsening symptoms. I discussed return parameters alarm symptoms. Answered all questions. Patient conveyed verbal understanding and agreed to the plan. I discussed this case with my attending Dr. Ang. Disposition Clinical Impression: Allergic conjunctivitis Disposition: HOME SELF-CARE Condition: Good Instructions (If sedation given, give patient instructions): Conjunctivitis (ED) Additional Instructions: Follow-up with PCP this week. Report back to ER with any new or worsening symptoms. Utilize an [id number] antihistamine eyedrop such as Xyzal Is patient prescribed a controlled substance at d/c from ED?: No Referrals: Benson Chen DO [Primary Care Provider] - 05/03/22 Time of Disposition: 18:08
== END 2022-04-30 18:20 | disposition home or self-care (01) ==
LOC: MERGE 17:13 → EC 17:13
DX: H10.12 Acute atopic conjunctivitis, left eye (principal); F17.290 Nicotine dependence, other tobacco product, uncomplicated; J45.909 Unspecified asthma, uncomplicated; Z91.018 Allergy to other foods; Z88.2 Allergy status to sulfonamides; Z88.1 Allergy status to other antibiotic agents; Z88.0 Allergy status to penicillin; Z91.040 Latex allergy status; Z91.012 Allergy to eggs; Z91.010 Allergy to peanuts
CPT/HCPCS: 99283